=== PATIENT | male | born 1935 | race Caucasian/White ===

== ENCOUNTER 2024-01-15 13:15 | Day surgery (SDC) | payer MEDICARE ==
[~2024-01-15 13:15] MED LIST: SODIUM CHLORIDE 0.9% 100 ML BAG IV ONE; ceFAZolin 1,000 MG VIAL ONE
[2024-01-15] MEDS ORDERED: ONDANSETRON 4 MG/2 ML VIAL ONE (14:04)
[2024-01-15] MEDS ORDERED: ACETAMINOPHEN TAB 500 MG TAB ONE (14:04)
[2024-01-15] MEDS ORDERED: HEPARIN SODIUM,PORCINE 5,000 UNIT/ML 1 ML VIAL ONE (14:04)
[2024-01-15] MEDS ORDERED: DEXAMETHASONE SOD PHOSPHATE 4 MG/ML 1 ML VIAL ONE (14:04)
[2024-01-15] MEDS ORDERED: LACTATED RINGERS 1,000 ML BAG ONE (14:05)
[2024-01-15] MEDS ORDERED: NEOSTIGMINE 1 MG/ML 10 ML VIAL ONE (16:14)
[2024-01-15] MEDS ORDERED: ROCURONIUM 10 MG/ML (5 ML VIAL) IV ONE (16:14)
[2024-01-15] MEDS ORDERED: GLYCOPYRROLATE 0.2 MG/ML 2 ML VIAL ONE (16:14)
[2024-01-15] MEDS ORDERED: LIDOCAINE 1% INJ 10MG/ML (20 ML MDV) ONE (16:14)
[2024-01-15] MEDS ORDERED: fentaNYL (PF) 50 MCG/ML 2 ML AMP ONE (16:14)
[2024-01-15] MEDS ORDERED: PROPOFOL 10 MG/ML 20 ML VIAL IV ONE (16:14)
[2024-01-15] MEDS ORDERED: SUCCINYLCHOLINE CHLORIDE 200 MG/10 ML VIAL IV ONE (16:14)
[2024-01-15] MEDS ORDERED: INDOCYANINE GREEN 25 MG VIAL IV ONE (16:50)
[2024-01-15] MEDS ORDERED: LIDOCAINE 2%-EPI 1:100,000 20 ML VIAL ONE (16:50)
== END 2024-01-15 19:45 | disposition home or self-care (01) ==
LOC: OR 13:15
PROVIDERS: ATTEND Surgery Plastic and Reconstructive Surgery
DX: K80.10 Calculus of gallbladder with chronic cholecystitis without obstruction
CPT/HCPCS: 88304